=== PATIENT | female | born 1990 | race Caucasian/White ===

== ENCOUNTER → 2021-03-21 16:42 | Outpatient (BNVA) | payer SELFPAY | PROVIDERS: Visit Provider Nurse Practitioner Family | DX: Z20.822 Contact with and (suspected) exposure to COVID-19 (principal); B34.9 Viral infection, unspecified; Z78.9 Other specified health status | CPT/HCPCS: 87635 ==

== ENCOUNTER → 2021-04-24 08:31 | Outpatient (BNVA) | payer OTHER, SELFPAY | PROVIDERS: Visit Provider Nurse Practitioner Women's Health | DX: N92.6 Irregular menstruation, unspecified (principal); O20.0 Threatened abortion | CPT/HCPCS: 81025; 84702; 85027; 86850; 86900 ==

== ENCOUNTER → 2021-05-14 09:41 | Outpatient (BNVA) | payer OTHER, SELFPAY | PROVIDERS: Visit Provider Obstetrics & Gynecology | DX: Z34.80 Encounter for supervision of other normal pregnancy, unspecified trimester (principal) | CPT/HCPCS: 80307; 84315; 84443; 85025; 86592; 86762; 86803; 86850; 86900; 87086; 87340 ==

== ENCOUNTER → 2021-05-31 10:13 | Outpatient (BNVA) | payer OTHER, SELFPAY | PROVIDERS: Visit Provider Obstetrics & Gynecology | DX: Z34.90 Encounter for supervision of normal pregnancy, unspecified, unspecified trimester (principal) | CPT/HCPCS: 84315; 87624 ==

== ENCOUNTER → 2021-06-25 10:31 | Outpatient (BNVA) | payer OTHER, SELFPAY | PROVIDERS: Visit Provider Obstetrics & Gynecology | DX: Z34.90 Encounter for supervision of normal pregnancy, unspecified, unspecified trimester (principal) | CPT/HCPCS: 84315; 87086 ==

== ENCOUNTER → 2021-07-27 10:29 | Outpatient (BNVA) | payer OTHER, SELFPAY | PROVIDERS: Visit Provider Obstetrics & Gynecology | DX: Z34.90 Encounter for supervision of normal pregnancy, unspecified, unspecified trimester (principal) | CPT/HCPCS: 81000 ==

== ENCOUNTER 2021-08-27 06:54 | Outpatient (CLI) | payer OTHER, SELFPAY ==
--- NOTE | 2021-08-27 07:17 | US_ITS ---
WS: [id number] OBSTETRICAL ULTRASOUND COMPLETE HISTORY: SUPERVISE NORMAL COMPARISON: 07/24/2021, 04/25/2021 Single intrauterine gestation in Cephalic presentation. Cervix is Closed and normal length. Cervical length is 4.7 cm. Normal amount of amniotic fluid surrounds the fetus. Placenta: Fundal, no previa or abruption. Hypoechoic area in the placenta measures 3.0 x 2.0 x 2.9 c m. Placenta grade 1 Heart: 141 BPM. Four chambers are identified. RIGHT and LEFT outflow tracts are unremarkable. Anatomy: Intracranial structures and spine are normal. kidneys, stomach and urinary bladd er are unremarkable. Abdominal wall, three-vessel cord and cord insertion site are normal. 4 extremities are present. profile: Unremarkable. Gender: Male. measurements: BPD = 6.4 cm = 25w6d HC = 23.9 cm = 26w0d AC = 22.0 cm = 26w3d FL = 4.5 cm = 25w0d EFW: 858 g. Biometry is internally concordant. AGA by ultrasound: 25w5d JENNIFER by ultrasound: 12/05/2021 US/US OB >= 14 weeks fetus [id number] IMPRESSION: 1. Single intrauterine gestation of 25w5d with an JENNIFER of 12/05/2021. Appropria te growth since the first trimester ultrasound. No growth asymmetry. 2. Unremarkable screening survey of anatomy.
== END 2021-08-27 06:55 | disposition home or self-care (01) ==
LOC: RAD 06:55
PROVIDERS: Visit Provider Obstetrics & Gynecology
DX: Z34.90 Encounter for supervision of normal pregnancy, unspecified, unspecified trimester (principal)
CPT/HCPCS: 76805; 84315

== ENCOUNTER → 2021-09-17 08:04 | Outpatient (BNVA) | payer OTHER, SELFPAY | PROVIDERS: Visit Provider Obstetrics & Gynecology | DX: Z34.90 Encounter for supervision of normal pregnancy, unspecified, unspecified trimester (principal); Z98.891 History of uterine scar from previous surgery; Z14.8 Genetic carrier of other disease; Z86.2 Personal history of diseases of the blood and blood-forming organs and certain disorders involving the immune mechanism; Z30.09 Encounter for other general counseling and advice on contraception | CPT/HCPCS: 82950; 84315; 85025 ==

== ENCOUNTER → 2021-10-29 13:17 | Outpatient (BNVA) | payer OTHER, SELFPAY | PROVIDERS: Visit Provider Obstetrics & Gynecology | DX: Z34.90 Encounter for supervision of normal pregnancy, unspecified, unspecified trimester (principal); Z3A.00 Weeks of gestation of pregnancy not specified | CPT/HCPCS: 84315; 85025 ==

== ENCOUNTER → 2021-11-15 09:37 | Outpatient (BNVA) | payer OTHER, SELFPAY | PROVIDERS: Visit Provider Obstetrics & Gynecology | DX: Z34.90 Encounter for supervision of normal pregnancy, unspecified, unspecified trimester (principal); Z14.8 Genetic carrier of other disease; Z30.09 Encounter for other general counseling and advice on contraception; Z86.2 Personal history of diseases of the blood and blood-forming organs and certain disorders involving the immune mechanism; Z98.891 History of uterine scar from previous surgery | CPT/HCPCS: 84315; 87081 ==

== ENCOUNTER 2021-11-22 20:11 | Outpatient (CLI) | payer OTHER, SELFPAY ==
[2021-11-22] VITALS (7 sets, daily range): BP systolic 101–110; BP diastolic 58–69; PULSE 81–101; RESP 16; BMI 33.3
[2021-11-22] MEDS: dextrose 5%-lactated ringers 1,000 ML 999 ML IV (20:58)
== END 2021-11-22 22:20 | disposition home or self-care (01) ==
LOC: OPOB 20:18 → OBGYN 20:18
PROVIDERS: Visit Provider Obstetrics & Gynecology
DX: O47.1 False labor at or after 37 completed weeks of gestation (principal); Z3A.37 37 weeks gestation of pregnancy
CPT/HCPCS: 59025; 99211

== ENCOUNTER → 2021-11-26 10:37 | Outpatient (BNVA) | payer OTHER, SELFPAY | PROVIDERS: Visit Provider Obstetrics & Gynecology | DX: Z34.90 Encounter for supervision of normal pregnancy, unspecified, unspecified trimester (principal) | CPT/HCPCS: 81000 ==

== ENCOUNTER 2021-12-04 05:19 | Inpatient (IN) | payer OTHER, SELFPAY ==
--- NOTE | 2021-11-19 16:10 | ANES.PREANE2 ---
Pre-Anesthetic Assessment Height/Weight: Height 1.57 m Preop Diagnosis: Planning of labor analgesia Operation Date: 12/04/21 07:00 Proposed Procedures p repeat section, bilateral tubal ligation 90190, 46371,O34.219,Z30.2(Bilateral) - Mary Anne Alvarado MD Familial anesthetic complications: None Was Beta Bridger taken within 24 hours: N/A Was Clonidine taken within 24 hours: N/A Last intake: Full stomach Social No alcohol and No tobacco Exam alert, oriented x 3, clear to auscultation bilaterally and regular rate & rhythm Airway Submandibular: within normal limits Cervical ROM: within normal limits Mallampati: Class II Dentition: full History/ROS No significant history except as noted and No significant complaints Pulmonary None reported CV/HEM None reported None reported Hepatic None reported GI None reported Metabolic None reported Musc/skel None reported Neuropsych None reported Anesthetic Plan ASA status: 2 Anesthesia: Anesthesia Evaluation, Eval. for regional block, General and Regional (specify below) (Spinal ) Other: We discussed risk and benefits of spinal anesthesia including infection, paralysis/catastrophic nerve injury, back bruising/pain, PDPH, conversion to general in case of spinal failure, intraoperative and PONV, life threatening allergic reaction, post operative ICU admission requiring prolonged intubation, stroke, heart attack. Risk of > 500 ml blood loss (7ml/kg in children): No Medications/Allergies Home Medications Medication Instructions Recorded Confirmed Last Taken Type docosahexaenoic acid 200 mg mg PO 05/14/21 11/19/21 Unknown History capsule ( DHA) Allergies Allergy/AdvReac Type Severity Reaction Status Date / Time No Known Allergies Allergy Verified 11/19/21 12:59 [facility] Anesthesia Medical History No pertinent past medical history negdx:htn,dm,thyroid,dvt/pe PCP: none Surgical History History of laparoscopy (~2018) cyst in the pelvis ? uncertain of where Previous section 1)--04/05/2020--in [facility]; due to CPD Family History Grandmother Diabetes Stroke Maternal-- age 75 Uterine cancer Maternal-- age 50's Family/Other Hypertension Most of maternal side Denies family history of Colon cancer Ovarian cancer Heart disease Hypercholesteremia Breast cancer Thyroid disease Social History Smoking and tobacco status: never smoked Data Anesthesia Cardiac Studies: No Data to Display
[2021-12-04] VITALS (28 sets, daily range): BP systolic 95–123; BP diastolic 46–73; PULSE 60–75; RESP 14–15; TEMP 36.4–36.6; O2SAT 96–100; BMI 33.6
[2021-12-04 05:59] LABS: Basophils % 0.3 %; Eosinophils # 0.2 10^3/uL (0.0-0.8); Eosinophils % 1.7 %; Hematocrit 38.8 % (37.0-47.0); Hemoglobin 12.3 g/dL (11.5-15.3); Lymphocytes # 2.7 10^3/uL (0.8-4.8); Lymphocytes % 24.5 %; Mean Corpuscular HGB Conc 31.7 g/dL (30.0-36.0); Mean Corpuscular Hemoglobin 29.1 pg (28.0-34.0); Mean Corpuscular Volume 91.7 fl (81-99); Mean Platelet Volume 12.2 fL (7.4-10.4); Monocytes # 0.8 10^3/uL (0.2-0.9); Neutrophils # 7.17 10^3/uL (1.8-7.7); Neutrophils % 65.5 %; Nucleated Red Blood Cells % 0 %; Platelet Count 131 10^3/cmm (130-400); Red Blood Count 4.23 10^6/uL (4.1-5.3); Red Cell Distribution Width 13.8 % (12.1-15.1)
[2021-12-04] MEDS: lactated ringers 1,000 ML 999 ML IV (06:05)
--- NOTE | 2021-12-04 06:51 | PM.OPHPUD ---
Labor & Delivery H&P Update Date of Procedure: December 04, 2021 Date H&P Performed: 12/03/21 H&P update information: I have reviewed H&P completed within last 30 days, I have examined patient prior to procedure and No changes to prior documentation Admission Diagnosis: Preop diagnosis: Planning of labor analgesia Planned procedure: Operation Date: 12/04/21 07:00 Proposed Procedures p repeat section, bilateral tubal ligation 90694, 53932,O34.219,Z30.2(Bilateral) - Mary Anne Alvarado MD Related Problem List Diagnoses (1) Consultation for sterilization: (2) History of delivery: (3) Supervision of normal :
--- NOTE | 2021-12-04 07:06 | P.ANESASSM_ITS ---
Pre-Anesthetic Assessment Height/Weight: Height 1.57 m Pulse BP 75 112/70 12/04/21 06:49 12/04/21 06:49 Preop Diagnosis: Planning of labor analgesia Operation Date: 12/04/21 07:00 Proposed Procedures p repeat section, bilateral tubal ligation 69395, 58 605,O34.219,Z30.2(Bilateral) - Mary Anne Alvarado MD Familial anesthetic complications: None Was Beta Bridger taken within 24 hours: N/A Was Clonidine taken within 24 hours: N/A Last Intake: 20:30 Social No alcohol and No tobacco Exam alert, oriented x 3, clear to auscultation bilaterally and regular rate & rhythm Airway Submandibular: within normal limits Cervical ROM: within normal limits Mallampati: Class II Dentition: full History/ROS No significant history except as noted Pulmonary None reported CV/HEM None reported None reported Hepatic None reported GI Gastroesophageal Reflux Disease Metabolic None reported Musc/skel None reported Neuropsych None reported Anesthetic Plan ASA status: 2 Anesthesia: Anesthesia Evaluation and Regional (specify below) (Spinal) Risk of > 500 ml blood loss (7ml/kg in children): Yes, adequate IV access and fluids planned Medications/Allergies Home Medications Medication Instructions Recorded Confirmed Last Taken Type docosahexaenoic acid 200 mg 200 mg PO DAILY 05/14/21 12/03/21 11/22/21 History capsule ( DHA) Allergies Allergy/AdvReac Type Severity Reaction Status Date / Time No Known Allergies Allergy Verified 12/03/21 09:24 [facility] Anesthesia Medical History No pertinent past medical history negdx:htn,dm,thyroid,dvt/pe PCP: none Surgical History History of laparoscopy (~2018) cyst in the pelvis ? uncertain of where Previous section 1)--04/05/2020--in [facility]; due to CPD Family History Grandmother Diabetes Stroke Maternal-- age 75 Uterine cancer Maternal-- age 50's Family/Other Hypertension Most of maternal side Denies family history of Colon cancer Ovarian cancer Heart disease Hypercholesteremia Breast cancer Thyroid disease Social History Smoking and tobacco status: never smoked Data Anesthesia : 12/04/21 05:50 Short CBC 12/04/21 Range/Units 05:50 WBC 11.0 H (4.0-10.0) 10^3/uL Hgb 12.3 (11.5-15.3) g/dL Hct 38.8 (37.0-47.0) % MCV 91.7 (81-99) fl Plt Count 131 (130-400) 10^3/cmm Neut % (Auto) 65.5 % Neut # (Auto) 7.17 (1.8-7.7) 10^3/uL Cardiac Studies: No Data to Display
[2021-12-04] MEDS: metoclopramide 5 mg/mL SDV 2 mL 10 MG IVP (07:07)
[2021-12-04] MEDS: famotidine 20 mg/2 mL INJ IVP (07:07)
[2021-12-04] MEDS: citric acid-sodium citrate 30 mL UDC PO (07:07)
[2021-12-04] MEDS: lactated ringers 1,000 ML 125 ML IV (07:08)
--- NOTE | 2021-12-04 08:56 | PM.OP ---
Operative Report Date of procedure: December 04, 2021 Pre-op diagnosis: Preop Diagnosis previous , desires sterilization Post-op diagnosis: same Post-op findings: term male in the cephalic presentation. Normal appearing uterus, tubes and ovaries Procedure done: repeat with bilateral salpingectomy Specimens removed/disposition: bilateral fallopian tubes to pathology Surgeon: Mary Anne Alvarado Anesthesia: Other (spinal) Estimated blood loss (mL): 600 IV fluids (mL): 1,700 Urine output (mL): 800 Complications: none Findings: term male in the cephalic presentation Condition: stable Disposition: PACU Brief History: The patient presented for a repeat with tubal ligation Procedure: The patient was taken to the operating room where spinal anesthesia was administered and found to be adequate. She was prepped and draped in the normal sterile fashion in the dorsal supine position with a leftward tilt. A Pfannenstiel skin incision was made and carried down to the underlying layer of fascia. The fascia was nicked in the midline and extended laterally with the Richardson scissors. The fascia was then tented up and the rectus muscles dissected off sharply. The rectus muscles were and the peritoneum entered bluntly with the digit. The peritoneal incision was extended superiorly and inferiorly with good visualization of the bladder. The Wallace O retractor was placed. It was clear of any bowel or omentum. The bladder flap was created sharply with the Metzenbaum scissors. A low transverse uterine incision was made and carried down to the bag of water. The bag of water was ruptured and the uterine incision extended cephalocaudad. The scalp was grasped and brought through the incision. The nose and mouth were bulb suctioned. The shoulders and body delivered atraumatically. The baby was allowed to rest, while being dried, for 1 minute and then the cord was clamped and cut. The baby was handed to the waiting rehabilitation medicine physician. The placenta was delivered by expression. The uterus was exteriorized and cleared of all clots and debris. The uterine incision was closed with 0 Vicryl in a running fashion. A second imbricating layer of 3-0 Monocryl was used to close the uterus. There was excellent hemostasis. Attention was then turned to the salpingectomy. The right fallopian tube was elevated with the valdez clamp and ligation of the tube from the uterus was performed first. Then, following inferior to the fallopian tube, the mesosalpinx was cauterized until the tube was removed. The left side was performed in the exact same manner. There was some bleeding from the the edge of the mesosalpinx on the left. A clamp was placed to control the bleeding. A heany stitch was performed and there was excellent hemostasis. The Wallace O retractor was removed. The uterus was returned to the abdomen. The peritoneum was closed with 3-0 Monocryl, incorporating the rectus muscle. The fascia was closed with 0 Vicryl in 2 separate sutures overlapping in the midline. The skin was closed with absorbable jannie. Stay sutures of monocryl were placed as well. Apgars on baby 8 at 1 minute and 8 at 5 minutes. weight 7 pounds 15 ounces. Mother and baby were stable post delivery.
--- NOTE | 2021-12-04 08:59 | ANE.PACU2 ---
Inpatient post-anesthesia follow up: Airway intact: Yes Vital signs: Temperature Pulse Rate 75 Respiratory Rate 14 Blood Pressure 112/70 Pulse Oximetry Oxygen Delivery Me thod Room Air Oxygen Flow Rate Fraction of Inspir ed Oxygen Hydration adequate: Yes Nausea and vomiting: No Pain level: Other (0) Pain level: 0 Mental status: Baseline
[2021-12-04] MEDS: dextrose 5%-lactated ringers 1,000 ML 125 ML IV (10:45)
[2021-12-04] MEDS: ketorolac 30 mg/mL INJ IVP ×2 (11:49→22:38)
[2021-12-04] MEDS: docusate sodium 100 mg Capsule PO ×2 (11:50→18:24)
[2021-12-04] MEDS: HYDROcodone-acetaminophen 5-325 mg Tablet PO (21:21)
[2021-12-05 02:45] LABS: Hematocrit 34.2 % (37.0-47.0); Hemoglobin 10.5 g/dL (11.5-15.3); Mean Corpuscular HGB Conc 30.7 g/dL (30.0-36.0); Mean Corpuscular Volume 94.5 fl (81-99); Mean Platelet Volume 13.2 fL (7.4-10.4); Platelet Count 134 10^3/cmm (130-400); Red Blood Count 3.62 10^6/uL (4.1-5.3); Red Cell Distribution Width 13.7 % (12.1-15.1); White Blood Count 13.1 10^3/uL (4.0-10.0)
[2021-12-05 03:00] VITALS: BP 99/62; PULSE 64; O2SAT 98
[2021-12-05 04:28] VITALS: BP 104/67; PULSE 71; RESP 15; TEMP 36.6; O2SAT 98
[2021-12-05] MEDS: ketorolac 30 mg/mL INJ IVP (04:57)
[2021-12-05] MEDS: simethicone 80 mg Chew PO ×3 (08:03→17:51)
[2021-12-05] MEDS: ibuprofen 800 mg tablet PO ×3 (09:54→20:15)
[2021-12-05] MEDS: docusate sodium 100 mg Capsule PO ×2 (09:54→17:51)
[2021-12-05] MEDS: prenatal vitamin Capsule 1 CAP PO (09:54)
[2021-12-05 09:57] VITALS: BP 115/69; PULSE 72; RESP 16; O2SAT 98
--- NOTE | 2021-12-05 11:23 | PM.PN ---
Vitals/I&O/Wt Last Vital Signs Temp 97.9 F 12/05/21 04:28 Pulse 72 12/05/21 09:57 Resp 16 12/05/21 09:57 BP 115/69 12/05/21 09:57 Pulse Ox 98 12/05/21 09:57 O2 Del Method 12/05/21 09:57 12/04/21 12/05/21 12/05/21 22:59 06:59 14:59 Intake Total 1999 / 1999 Output Total 950 / 1750 650 / 2400 Balance 1050 / 250 -650 / -400 Weight last 48 hrs Weight 184 lb Physical Exam Narrative: The patient is doing well this morning. No concerns Const: COMMON NORMALS: no acute distress, average body habitus, patient oriented x3, no limitations, healthy appearing, alert and well nourished GENERAL APPEARANCE: cooperative, comfortable, well kempt and well developed ORIENTATION/CONSCIOUSNESS: Yes awake, Yes oriented to person, Yes oriented to place and Yes oriented to time Resp: COMMON NORMALS: normal respiratory effort EFFORT & INSPECTION: Yes able to speak in complete sentences GI: COMMON NORMALS: Soft to palpation and non-tender PALPATION: Yes Soft to palpation Extremity: COMMON NORMALS: no calf tenderness Neuro: COMMON NORMALS: patient oriented x3 SENSORIUM/ORIENTATION: Yes alert, Yes oriented to person, Yes oriented to place and Yes oriented to time Psych: APPEARANCE: Yes well kempt Skin: WOUNDS: Yes surgical site (clean/dry/intact) Urinary Catheter Management: Whatley: Cath Placed During This Visit: yes, but has since been removed by the nurse Reason for Continuing Indwelling Catheter: Other Urinary Catheter Date of Insertion: 12/04/21 Urinary Catheter Time of Insertion: 07:20 Date Urinary Catheter Removed: 12/05/21 Time Urinary Catheter Discontinued: 04:28 Data : 12/04/21 23:00 Attestations Medical Necessity Statement*: The patient has had a . She will be here at least 2 midnights Coding Level of Care Code Acute Associate Dean for Elzbieta Méndez
[2021-12-05 16:50] VITALS: BP 122/64; PULSE 74; RESP 16; TEMP 36.7; O2SAT 98
[2021-12-05] MEDS: HYDROcodone-acetaminophen 5-325 mg Tablet PO (21:32)
[2021-12-05 22:55] VITALS: BP 104/57; PULSE 75; RESP 16; TEMP 36.8
[2021-12-06] MEDS: prenatal vitamin Capsule 1 CAP PO (07:21)
[2021-12-06] MEDS: ibuprofen 800 mg tablet PO (07:21)
[2021-12-06] MEDS: HYDROcodone-acetaminophen 5-325 mg Tablet PO (07:21)
[2021-12-06] MEDS: docusate sodium 100 mg Capsule PO (07:21)
[2021-12-06] MEDS: simethicone 80 mg Chew PO (09:05)
[2021-12-06 10:23] VITALS: BP 125/79; PULSE 97; RESP 15; TEMP 36.6; O2SAT 97
--- NOTE | 2021-12-06 12:00 | PM.DCS ---
Discharge Providers Date of Admission: 12/04/21 05:19 Date of Discharge: December 06, 2021 Attending Provider at Admission: Mary Anne Alvarado MD Attending Provider at Discharge: Mary Anne Alvarado MD Diagnoses at Discharge Discharge Diagnosis (1) Consultation for sterilization: Status: Acute (2) History of delivery: Status: Acute (3) Supervision of normal : Status: Acute Reason for Visit Reason for Visit: O34.219Maternal care for unspecified type scar fro Hospital Course Hospital Course The patient was admitted for repeat with tubal ligation. She did well and was ready for discharge on day #2. Physical Exam Narrative: no concerns this morning. Const: COMMON NORMALS: no acute distress, patient oriented x3, no limitations, healthy appearing, alert and well nourished GENERAL APPEARANCE: cooperative, comfortable, well kempt and well developed ORIENTATION/CONSCIOUSNESS: Yes awake, Yes oriented to person, Yes oriented to place and Yes oriented to time Resp: COMMON NORMALS: normal respiratory effort EFFORT & INSPECTION: Yes able to speak in complete sentences GI: COMMON NORMALS: Soft to palpation and non-tender PALPATION: Yes Soft to palpation Extremity: COMMON NORMALS: normal to inspection, capillary refill normal and no joint enlargement Neuro: COMMON NORMALS: patient oriented x3 SENSORIUM/ORIENTATION: Yes alert, Yes oriented to person, Yes oriented to place and Yes oriented to time Psych: COMMON NORMALS: mental status grossly normal, Normal thought process present, cooperative, normal affect and speech normal APPEARANCE: Yes well kempt SPEECH: Yes normal speech THOUGHT PROCESS: Normal thought process present Urinary Catheter Management: Whatley: Cath Placed During This Visit: yes, but has since been removed by the nurse Reason for Continuing Indwelling Catheter: Other Urinary Catheter Date of Insertion: 12/04/21 Urinary Catheter Time of Insertion: 07:20 Date Urinary Catheter Removed: 12/05/21 Time Urinary Catheter Discontinued: 04:28 Discharge Data Studies Completed and Pending Laboratory Results WBC 13.1 10^3/uL (4.0-10.0) H 12/04/21 23:00 RBC 3.62 10^6/uL (4.1-5.3) L 12/04/21 23:00 Hgb 10.5 g/dL (11.5-15.3) L 12/04/21 23:00 Hct 34.2 % (37.0-47.0) L 12/04/21 23:00 MCV 94.5 fl (81-99) 12/04/21 23:00 MCH 29.0 pg (28.0-34.0) 12/04/21 23:00 MCHC 30.7 g/dL (30.0-36.0) 12/04/21 23:00 RDW 13.7 % (12.1-15.1) 12/04/21 23:00 Plt Count 134 10^3/cmm (130-400) 12/04/21 23:00 MPV 13.2 fL (7.4-10.4) H 12/04/21 23:00 Neut % (Auto) 65.5 % 12/04/21 05:50 Lymph % (Auto) 24.5 % 12/04/21 05:50 [place] % (Auto) 7.0 % 12/04/21 05:50 Eos % (Auto) 1.7 % 12/04/21 05:50 Baso % (Auto) 0.3 % 12/04/21 05:50 Neut # (Auto) 7.17 10^3/uL (1.8-7.7) 12/04/21 05:50 Lymph # (Auto) 2.7 10^3/uL (0.8-4.8) 12/04/21 05:50 [place] # (Auto) 0.8 10^3/uL (0.2-0.9) 12/04/21 05:50 Eos # (Auto) 0.2 10^3/uL (0.0-0.8) 12/04/21 05:50 Baso # (Auto) 0.0 10^3/uL (0.0-0.1) 12/04/21 05:50 Nucleated RBC % (auto) 0 % 12/04/21 05:50 Nucleated RBCs # 0.0 /100WBC 12/04/21 05:50 Vitals Last Vital Signs Temp 97.9 F 12/06/21 10:23 Pulse 97 12/06/21 10:23 Resp 15 12/06/21 10:23 BP 125/79 12/06/21 10:23 Pulse Ox 97 12/06/21 10:23 O2 Del Method 12/06/21 10:23 Discharge Plan Discharge Patient Disposition: Home Condition: Stable Prescriptions: New ibuprofen 800 mg Tablet 800 mg PO TID 7 Days Qty: 30 0RF hydrocodone-acetaminophen 5-325 mg Tablet 1 tab PO Q4H PRN (Reason: Moderate To Severe Pain) Qty: 30 0RF docusate sodium 100 mg Capsule 100 mg PO BID Qty: 60 0RF Continued DHA 200 mg capsule 200 mg PO DAILY Discharge Orders: Discharge Order (Routine); Ordered 12/06/21 Ordered By: Mary Anne Alvarado Referrals: Mary Anne Alvarado MD [Physician] - Discharge Diet: Usual diet Discharge Activity: Limit activity as instructed Patient Instructions: Depression (DC), Bleeding (DC), Preeclampsia and Eclampsia After Delivery (GEN), Hemorrhage (DC), OB [facility], OB Discharge Report, OB Food/Drug Interaction Guide, OB Care at Home, Opioid Safety, OB Home Care Discharge Attestations Time Spent in Discharge Care*: less than 30 min Quality Metrics Clinical Quality Measures [ No reported AMI, CVA or VTE this stay] Coding Level of Care Code Acute Chg FW DC note Diagnoses Consultation for sterilization Z30.09 History of delivery Z98.891 Supervision of normal Z34.90
[2021-12-06 13:52] VITALS: BP 116/83; PULSE 79; RESP 15; TEMP 36.9; O2SAT 98
== END 2021-12-06 11:50 | disposition home or self-care (01) | DRG 785 ==
PROVIDERS: Admitting Provider Obstetrics & Gynecology; Visit Provider Obstetrics & Gynecology
PROC: 10D00Z1 Extraction of Products of Conception, Low, Open Approach (ICD-10-PCS; CPT 59514; principal; 2021-12-04 07:00)
DX: O34.219 Maternal care for unspecified type scar from previous cesarean delivery (principal); Z37.0 Single live birth; Z30.2 Encounter for sterilization; Z86.2 Personal history of diseases of the blood and blood-forming organs and certain disorders involving the immune mechanism; Z14.8 Genetic carrier of other disease; Z3A.39 39 weeks gestation of pregnancy
CPT/HCPCS: 36415; 51702; 58611; 59025; 59409; 85025; 85027; 88302; 99211; J1885; J2274; J2405; J2765; J3010; J3490